=== PATIENT | female | born 1950 | race Caucasian/White ===

== ENCOUNTER 2021-04-23 06:43 | Emergency (ER) | payer OTHER ==
[2021-04-23 06:53] VITALS: TEMP 98.5; BMI 32.8
[2021-04-23] MEDS ORDERED: ACETAMINOPHEN 1000 MG/100 ML VIAL IVPB ONE (07:17)
[2021-04-23] MEDS ORDERED: SODIUM CHLORIDE 0.9% 500 ML INFUS.BAG IV ONE (07:18)
[2021-04-23] MEDS ORDERED: ACETAMINOPHEN INJECTION 100 ML IVPB ONE (07:47)
[2021-04-23 08:36] LABS: ALBUMIN 3.4 g/dl (3.4-5.0); CALCIUM 9.1 mg/dl (8.5-10); CREATININE 0.6 mg/dl (0.55-1.3); EPITHELIAL CELLS FEW /hpf; TOT PROT 6.4 g/dl (6.4-8.2)
[2021-04-23] MEDS ORDERED: POTASSIUM CHLORIDE TABS 20 MEQ TABLET.ER (FP) PO ONE ×2 (08:39→08:43)
[2021-04-23 08:40] LABS: ACTIVATED PTT 28.2 SECONDS (25.2-36.5)
[2021-04-23] MEDS ORDERED: MAGNESIUM SULF 50% (8.12 MEQ/2 ML-1 GM VIAL) IVPB ONE (08:40)
[2021-04-23 08:44] LABS: INR 1.1 (0.82-1.09); PROTHROMBIN TIME (PATIENT) 12.2 SEC (10.2-13.0)
[2021-04-23] MEDS ORDERED: MAGNESIUM 1GM/D5W - 1 GM/100 ML IVPB IVPB ONE (08:44)
[2021-04-23 09:41] LABS: HEMOGLOBIN 13.6 GM/dL (10.7-15.3); MONO % 9.5 % (3.8-10.2)
[2021-04-23 09:45] LABS: BASO % 0.9 % (0-2.0); EOS % 1.4 % (0-4.5); HEMATOCRIT 39.3 % (32.4-45.2); LYMPH % 18.3 % (8-40); MCH 32.4 pg (25.7-33.7); MCHC 34.5 g/dl (32.0-36.0); NEUT % 69.9 % (42.8-82.8); PLATELET COUNT 298 10^3/uL (134-434); RBC 4.19 M/mm3 (3.60-5.2); RDW 13.4 % (11.6-15.6); WHITE BLOOD COUNT 6.5 K/mm3 (4.0-10.0)
[2021-04-23 11:21] VITALS: BP 152/90; PULSE 84
== END 2021-04-23 11:27 | disposition home or self-care (01) ==
LOC: FER 06:43
PROC: 3E033NZ Introduction of Analgesics, Hypnotics, Sedatives into Peripheral Vein, Percutaneous Approach (ICD-10-PCS; principal; 2021-04-23)
PROC: 3E033GC Introduction of Other Therapeutic Substance into Peripheral Vein, Percutaneous Approach (ICD-10-PCS; 2021-04-23)
DX: K44.9 Diaphragmatic hernia without obstruction or gangrene (principal); K59.00 Constipation, unspecified
CPT/HCPCS: 36415; 74177-TC; 80053; 81003; 81015; 83690; 83735; 85025; 85610; 85730; 86850; 86900; 86901; 87086; 99285-25; J0131

== ENCOUNTER 2021-12-25 09:11 | Emergency (ER) | payer OTHER ==
[2021-12-25 09:25] VITALS: BP 133/72; PULSE 79; RESP 16; TEMP 98.3; BMI 40.7
[2021-12-25] MEDS ORDERED: SODIUM CHLORIDE 1,000 ML IV STA (09:30)
[2021-12-25 10:01] LABS: HEMATOCRIT 37.6 % (32.4-45.2); HEMOGLOBIN 13.4 G/dL (10.7-15.3); MCH 33.2 pg (25.7-33.7); MCHC 35.7 g/dl (32.0-36.0); MEAN PLT VOLUME 7.2 fl (7.5-11.1); PLATELET COUNT 243.7 10^3/uL (134-434); RBC 4.04 10^6/uL (3.60-5.2); RDW 14.4 % (11.6-15.6); WHITE BLOOD COUNT 7.4 10^3/uL (4.0-10.8)
[2021-12-25 10:17] LABS: PLATELET ESTIMATE ADEQUATE
[2021-12-25 10:35] LABS: ALBUMIN 3.1 g/dl (3.4-5.0); BILIRUBIN,TOTAL 1.5 mg/dl (0.2-1); CREATININE 0.8 mg/dl (0.55-1.3)
[2021-12-25] MEDS ORDERED: AMOX TR/POT CLAV 875MG/125MG TABLETS (FP) PO ONE (13:06)
[2021-12-25] MEDS ORDERED: AMOX TR/POT CLAV 875MG/125MG TABLETS (FP) ONE (13:17)
== END 2021-12-25 13:34 | disposition home or self-care (01) ==
LOC: FER 09:11
PROC: 3E0337Z Introduction of Electrolytic and Water Balance Substance into Peripheral Vein, Percutaneous Approach (ICD-10-PCS; principal; 2021-12-25)
DX: K52.9 Noninfective gastroenteritis and colitis, unspecified (principal)
CPT/HCPCS: 36415; 74177-TC; 80053; 83690; 85025; 99285-25; C9803-CS; Q9967; U0003; U0005